=== PATIENT | female | born 1990 | race Caucasian/White ===

== ENCOUNTER 2017-02-05 12:20 | Emergency (ER) | payer OTHER ==
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
[2017-02-05 14:04] VITALS: BP 125/83
== END 2017-02-05 14:02 | disposition home or self-care (01) ==
LOC: UCCORT 12:20
DX: Z76.0 Encounter for issue of repeat prescription (principal); F17.210 Nicotine dependence, cigarettes, uncomplicated
CPT/HCPCS: 99212; G0463